=== PATIENT | male | born 1945 | race Caucasian/White ===

== ENCOUNTER 2018-08-03 11:45 | Inpatient (IN) | payer MEDICARE, BC ==
[~2018-08-03] VITALS: Ht 182.9 cm; Wt 105.5 kg
[2018-08-03] VITALS (11 sets, daily range): BP systolic 105–152; BP diastolic 73–91
[~2018-08-03 11:45] MED LIST: CIALIS; [UNRECOGNIZED DRUG - OTHER]
[2018-08-03] MEDS ORDERED: heparin 25,000 UNIT/250ml bag 250 ML IV SCH (11:57)
[2018-08-03] MEDS ORDERED: heparin 10,000 units/1 ML INJ IV PRN (12:00)
[2018-08-03] MEDS ORDERED: aspirin 81mg tab.chew PO ONE (12:00)
[2018-08-03] MEDS ORDERED: heparin 10,000 units/1 ML INJ IV ONE (12:00)
[2018-08-03] MEDS ORDERED: STEMI BOX ONE (12:00)
[2018-08-03] MEDS: nitroGLYCERIN 0.4mg SUBLingual tab SL PRN ×2 (12:04→12:12)
[2018-08-03 12:09] LABS: BASOPHILS % (AUTO) 0.2 % (0-1); EOSINOPHILS # (AUTO) 0.2 X10'3 (0-0.9); EOSINOPHILS % (AUTO) 1.9 % (0-6); HEMOGLOBIN 17.1 g/dl (14.0-17.9); LYMPHOCYTES # (AUTO) 2.7 X10'3 (1.1-4.8); MEAN CORPUSCULAR HEMOGLOBIN 29.9 PG (27.0-31.0); MEAN CORPUSCULAR HGB CONC 33.6 g/dL (33.0-36.5); MEAN CORPUSCULAR VOLUME 88.9 FL (78-98); MONOCYTES # (AUTO) 0.7 X10'3 (0-0.9); MONOCYTES % (AUTO) 5.7 % (2-12); NEUTROPHILS # (AUTO) 8.7 X10'3 (1.8-7.7); NEUTROPHILS % (AUTO) 70.2 % (42-75); PLATELET COUNT 245 X10'3 (140-440); RED BLOOD COUNT 5.73 X10'6 (4.70-6.10); RED CELL DISTRIBUTION WIDTH 12.5 % (11.5-14.5); WHITE BLOOD COUNT 12.4 X10'3 (4.5-11.0)
--- NOTE | 2018-08-03 12:14 | NUR ---
CALLED DR. MESA TO NOTIFY HIM OF STEMI- HE SAID "OKAY". Addendum: 08/03/18 at 1216 by RANDOLPH SPOKE WITH DR. MESA @ [phone]
[2018-08-03] MEDS ORDERED: FLUT1DIS4 INH (12:18)
[2018-08-03] MEDS ORDERED: ESOM40CA30 PO ×2 (12:18→16:44)
[2018-08-03] MEDS ORDERED: TADA10TA PO (12:20)
--- NOTE | 2018-08-03 12:20 | NUR ---
DELAYED ENTRY- PER PHOTOGRAPHIC REPRODUCTION TECHNICIAN GENERAL PRACTICE TEAM IS ON THEIR WAY BUT DUE TO WEATHER, ETA IS UNKNOWN.
[2018-08-03 12:25] LABS: ALANINE AMINOTRANSFERASE 34 U/L (12-78); ALBUMIN 4.2 G/DL (3.4-5.0); ALBUMIN/GLOBULIN RATIO 1.1 (1.1-1.5); ALKALINE PHOSPHATASE 88 IU/L (46-116); ANION GAP 11 (8-16); ASPARTATE AMINO TRANSFERASE 23 U/L (10-37); BILIRUBIN,TOTAL 0.6 MG/DL (0.1-1.0); BLOOD UREA NITROGEN 16 MG/DL (7-18); BUN/CREATININE RATIO 12.8 (5.4-32.0); CALCIUM 9.3 MG/DL (8.5-10.1); CHLORIDE 100 MMOL/L (99-107); CREATININE 1.25 MG/DL (0.60-1.10); GLUCOSE 122 MG/DL (70-104); POTASSIUM 4.2 MMOL/L (3.5-5.1); SODIUM 138 MMOL/L (135-145); TOTAL CARBON DIOXIDE 27.5 MMOL/L (24-32); TOTAL PROTEIN 7.9 G/DL (6.4-8.2); eGFR 57 ML/MIN
[2018-08-03 12:28] LABS: PARTIAL THROMBOPLASTIN TIME 27 SECONDS (22-32); PROTHROMBIN TIME 10.2 SECONDS (9.0-12.0)
[2018-08-03 12:32] LABS: MAGNESIUM 1.8 MG/DL (1.5-2.4)
[2018-08-03] MEDS ORDERED: midazolam 2 mg/2 ml injection ONE (12:41)
[2018-08-03] MEDS ORDERED: LIDOcaine 1% (10mg/ml)w/preservative injection 20ml MDV ONE (12:42)
[2018-08-03] MEDS ORDERED: heparin 1,000unit/ml 10ml vial 10 ML ONE (12:42)
[2018-08-03] MEDS ORDERED: iohexol 350 MG/1 ML 200ml bottle ONE (12:42)
[2018-08-03] MEDS ORDERED: fentaNYL/PF 50MCG/1 ML 2ML syringe ONE (12:42)
--- NOTE | 2018-08-03 12:59 | NUR ---
paz from cath team is taking pt to senior label specialist
[2018-08-03] MEDS ORDERED: atropine 0.1mg/ml 10ml syringe ONE (13:14)
[2018-08-03] MEDS ORDERED: tirofiban 5mg in NS 100mL 100 ML IV ONE (13:20)
[2018-08-03] MEDS ORDERED: ticagrelor 90mg tablet ONE (13:28)
[2018-08-03] MEDS ORDERED: ondansetron/PF 4mg/2ml inj IV PRN (14:25)
[2018-08-03] MEDS ORDERED: HYDROcodone/acetaminophen 5mg/325mg tablet PO PRN (14:25)
[2018-08-03] MEDS ORDERED: proCHLORperazine 10 MG/2 ml inj IV PRN (14:25)
[2018-08-03] MEDS ORDERED: HYDROcodone/acetaminophen 10/325mg tab PO PRN (14:25)
[2018-08-03] MEDS ORDERED: ATOR20TA66 PO (20:24)
[2018-08-03] MEDS ORDERED: acetaminophen 325mg tablet PO PRN (20:40)
[2018-08-03] MEDS: ticagrelor 90mg tablet PO SCH (20:47)
[2018-08-03] MEDS: OXAZEpam 15mg capsule PO PRN (21:30)
[2018-08-04 03:00] VITALS: BP 131/68
[2018-08-04 05:18] LABS: BASOPHILS % (AUTO) 0.2 % (0-1); EOSINOPHILS # (AUTO) 0.3 X10'3 (0-0.9); HEMATOCRIT 46.8 % (42.0-52.0); HEMOGLOBIN 15.9 g/dl (14.0-17.9); LYMPHOCYTES # (AUTO) 2.3 X10'3 (1.1-4.8); MEAN CORPUSCULAR HEMOGLOBIN 29.9 PG (27.0-31.0); MEAN CORPUSCULAR HGB CONC 33.9 g/dL (33.0-36.5); MEAN PLATELET VOLUME 8.1 FL (7.4-10.4); MONOCYTES # (AUTO) 0.8 X10'3 (0-0.9); MONOCYTES % (AUTO) 6.5 % (2-12); NEUTROPHILS # (AUTO) 9.3 X10'3 (1.8-7.7); NEUTROPHILS % (AUTO) 73.3 % (42-75); PLATELET COUNT 214 X10'3 (140-440); RED BLOOD COUNT 5.32 X10'6 (4.70-6.10); RED CELL DISTRIBUTION WIDTH 12.8 % (11.5-14.5); WHITE BLOOD COUNT 12.6 X10'3 (4.5-11.0)
[2018-08-04 06:00] VITALS: BP 146/88
[2018-08-04] MEDS: aspirin 81mg tablet.DR PO SCH (08:00)
[2018-08-04] MEDS: atorvastatin 20mg tablet PO SCH (08:00)
[2018-08-04] MEDS: ticagrelor 90mg tablet PO SCH ×2 (08:00→20:15)
[2018-08-04 08:45] LABS: CHOL/HDL RATIO 2.8 (0.00-4.99); CHOLESTEROL 133 MG/DL (0-200); HDL CHOLESTEROL 48 MG/DL (35-60); LDL CHOLESTEROL 76 MG/DL (50-100); TRIGLYCERIDES 106 MG/DL (20-135)
[2018-08-04] MEDS: pantoprazole 40mg Tablet.DR PO SCH (08:51)
[2018-08-04] MEDS: metoprolol tartrate 12.5mg (1/2 tablet) PO SCH ×2 (11:07→20:15)
[2018-08-04 11:30] VITALS: BP 167/87
[2018-08-04 15:15] VITALS: BP 182/110
--- NOTE | 2018-08-04 17:25 | NUR ---
patient was complaining of intermittent chest pain, EKG done, did not show changes just recent infarct which was known. VSS
[2018-08-04 19:00] VITALS: BP 163/88
[2018-08-04] MEDS: OXAZEpam 15mg capsule PO PRN (20:15)
[2018-08-04 23:00] VITALS: BP 146/96
[2018-08-05 03:00] VITALS: BP 132/91
[2018-08-05 05:16] LABS: BASOPHILS # (AUTO) 0.1 X10'3 (0-0.2); BASOPHILS % (AUTO) 0.4 % (0-1); EOSINOPHILS # (AUTO) 0.2 X10'3 (0-0.9); EOSINOPHILS % (AUTO) 1.6 % (0-6); HEMATOCRIT 51.1 % (42.0-52.0); HEMOGLOBIN 16.8 g/dl (14.0-17.9); LYMPHOCYTES # (AUTO) 2.2 X10'3 (1.1-4.8); LYMPHOCYTES % (AUTO) 17.4 % (21-51); MEAN CORPUSCULAR HEMOGLOBIN 29.4 PG (27.0-31.0); MEAN CORPUSCULAR HGB CONC 32.9 g/dL (33.0-36.5); MEAN CORPUSCULAR VOLUME 89.4 FL (78-98); MEAN PLATELET VOLUME 8.6 FL (7.4-10.4); MONOCYTES % (AUTO) 8.2 % (2-12); NEUTROPHILS # (AUTO) 9.1 X10'3 (1.8-7.7); NEUTROPHILS % (AUTO) 72.4 % (42-75); PLATELET COUNT 209 X10'3 (140-440); RED BLOOD COUNT 5.72 X10'6 (4.70-6.10); RED CELL DISTRIBUTION WIDTH 12.4 % (11.5-14.5); WHITE BLOOD COUNT 12.6 X10'3 (4.5-11.0)
[2018-08-05 05:23] LABS: ALBUMIN 3.6 G/DL (3.4-5.0); ANION GAP 11 (8-16); BLOOD UREA NITROGEN 20 MG/DL (7-18); CHLORIDE 103 MMOL/L (99-107); CREATININE 1.11 MG/DL (0.60-1.10); GLUCOSE 93 MG/DL (70-104); POTASSIUM 3.9 MMOL/L (3.5-5.1); SODIUM 139 MMOL/L (135-145); eGFR 65 ML/MIN
--- NOTE | 2018-08-05 06:14 | NUR ---
Notified Cardiology NURSE ANESTHESIA PROGRAM DIRECTOR Javy re: intermittent episodes of HR<50 NOC 08/04, and questionable brief episode of a-fib. Patient is on metoprolol following heart cath. Patient is in sinus rhythm currently and has remained asymptomatic throughout the shift.
--- NOTE | 2018-08-05 06:30 | NUR ---
Patient in room PCU 3025. I have received report from Arcelia BRUNSON and had the opportunity to ask questions and assume patient care.
--- NOTE | 2018-08-05 06:41 | NUR ---
Rounded on patient recently, c/o chest pain, informed telephone surveyor and watched rhythm convert to a-flutter. Placed order for EKG per protocol at this time.
[2018-08-05 07:00] VITALS: BP 136/93
[2018-08-05] MEDS ORDERED: pantoprazole 40mg Tablet.DR PO SCH (07:30)
[2018-08-05] MEDS: atorvastatin 20mg tablet PO SCH (07:52)
[2018-08-05] MEDS: aspirin 81mg tablet.DR PO SCH (07:52)
[2018-08-05] MEDS: pantoprazole 40mg Tablet.DR PO SCH (07:53)
[2018-08-05] MEDS: metoprolol tartrate 12.5mg (1/2 tablet) PO SCH (07:54)
[2018-08-05] MEDS: ticagrelor 90mg tablet PO SCH (07:56)
[2018-08-05] MEDS ORDERED: non-formulary drug (Fluticasone/Salmeterol (Advair 250-50 Diskus) 1 PUFFS) INH SCH (08:00)
[2018-08-05] MEDS ORDERED: BUDESONIDE 0.25 MG/2 ML AMPUL.NEB IH SCH (08:08)
[2018-08-05] MEDS ORDERED: ATOR20TA PO (08:53)
[2018-08-05] MEDS ORDERED: APIX5TAB3 PO (08:53)
[2018-08-05] MEDS ORDERED: METO25TA6 PO (08:53)
[2018-08-05] MEDS ORDERED: NITR0.4T51 SL (08:54)
[2018-08-05] MEDS ORDERED: TICA90TA PO (09:05)
--- NOTE | 2018-08-05 10:49 | NUR ---
Paged Silvana Palafox RN to clarify discharge medications.
[2018-08-05 11:00] VITALS: BP 132/87
[2018-08-05] MEDS ORDERED: albuterol 2.5 MG/3 ML nebule NEB SCH (11:00)
--- NOTE | 2018-08-05 12:00 | NUR ---
Patient discharged home at this time without event, escorted out via W/C out to meet his in private vehicle per [facility] staff. IV dc'd, cathlon intact; tele dc'd. Discharge instructions discussed, answered questions. Called meds in [facility]. Patient eager to go home.
[2018-08-05] MEDS ORDERED: metoprolol tartrate 25mg tablet PO SCH (20:00)
[2018-08-06] MEDS ORDERED: atorvastatin 20mg tablet PO SCH (08:00)
== END 2018-08-05 12:04 | disposition home or self-care (01) | DRG 247 ==
LOC: ER 11:45 → PCU 3S 14:00
PROVIDERS: ADMIT Internal Medicine Interventional Cardiology; ATTEND Internal Medicine Interventional Cardiology
PROC: 4A023N7 Measurement of Cardiac Sampling and Pressure, Left Heart, Percutaneous Approach (ICD-10-PCS; principal; 2018-08-03)
PROC: 027034Z Dilation of Coronary Artery, One Artery with Drug-eluting Intraluminal Device, Percutaneous Approach (ICD-10-PCS; 2018-08-03)
PROC: B2111ZZ Fluoroscopy of Multiple Coronary Arteries using Low Osmolar Contrast (ICD-10-PCS; 2018-08-03)
PROC: B2151ZZ Fluoroscopy of Left Heart using Low Osmolar Contrast (ICD-10-PCS; 2018-08-03)
DX: I21.19 ST elevation (STEMI) myocardial infarction involving other coronary artery of inferior wall (principal); J44.9 Chronic obstructive pulmonary disease, unspecified; I10 Essential (primary) hypertension; E78.5 Hyperlipidemia, unspecified; E78.00 Pure hypercholesterolemia, unspecified; I48.0 Paroxysmal atrial fibrillation; Z90.49 Acquired absence of other specified parts of digestive tract; Z88.0 Allergy status to penicillin; Z88.2 Allergy status to sulfonamides; Z79.01 Long term (current) use of anticoagulants; Z79.51 Long term (current) use of inhaled steroids; Z79.899 Other long term (current) drug therapy; Z87.891 Personal history of nicotine dependence
CPT/HCPCS: 93306; 93458; 96365; 96376; 99291; C9606; 36415; 71045; 80048; 80053; 80061; 83735; 83880; 84484; 85025; 85610; 85730; 87070; 93005; 99152; 99153; A4620; A6257; C1725; C1760; C1769; C1874; G0378; J0461; J1644; J2001; J2250; J3010; J3246; Q9967

== ENCOUNTER 2019-01-07 10:33 | Emergency (ER) | payer MEDICARE, BC ==
[~2019-01-07] VITALS: Ht 182.9 cm; Wt 109.0 kg
[~2019-01-07 10:33] MED LIST changes: +APIX5TAB3 PO; +ATOR20TA PO; -CIALIS; +ESOM40CA49 PO; +FLUT1DIS4 INH; +METO25TA6 PO; +NITR0.4T51 SL; +TICA90TA PO; -[UNRECOGNIZED DRUG - OTHER]
[2019-01-07 11:39] LABS: PARTIAL THROMBOPLASTIN TIME 26 SECONDS (22-32)
[2019-01-07 11:40] LABS: ALANINE AMINOTRANSFERASE 35 U/L (12-78); ALBUMIN 3.1 G/DL (3.4-5.0); ALKALINE PHOSPHATASE 69 IU/L (46-116); ANION GAP 5 (8-16); ASPARTATE AMINO TRANSFERASE 29 U/L (10-37); BASOPHILS % (AUTO) 0.3 % (0-1); BILIRUBIN,TOTAL 0.5 MG/DL (0.1-1.0); BLOOD UREA NITROGEN 14 MG/DL (7-18); BUN/CREATININE RATIO 12.6 (5.4-32.0); CALCIUM 7.7 MG/DL (8.5-10.1); CHLORIDE 107 MMOL/L (99-107); CREATININE 1.11 MG/DL (0.60-1.10); EOSINOPHILS # (AUTO) 0.1 X10'3 (0-0.9); EOSINOPHILS % (AUTO) 1.6 % (0-6); GLUCOSE 124 MG/DL (70-104); HEMATOCRIT 43.2 % (42.0-52.0); HEMOGLOBIN 14.4 g/dl (14.0-17.9); LYMPHOCYTES # (AUTO) 1.3 X10'3 (1.1-4.8); LYMPHOCYTES % (AUTO) 15.2 % (21-51); MEAN CORPUSCULAR HEMOGLOBIN 29.9 PG (27.0-31.0); MEAN CORPUSCULAR HGB CONC 33.4 g/dL (33.0-36.5); MEAN CORPUSCULAR VOLUME 89.6 FL (78-98); MEAN PLATELET VOLUME 8.1 FL (7.4-10.4); MONOCYTES # (AUTO) 0.6 X10'3 (0-0.9); MONOCYTES % (AUTO) 7.2 % (2-12); NEUTROPHILS # (AUTO) 6.6 X10'3 (1.8-7.7); NEUTROPHILS % (AUTO) 75.7 % (42-75); PLATELET COUNT 172 X10'3 (140-440); POTASSIUM 4.3 MMOL/L (3.5-5.1); RED BLOOD COUNT 4.82 X10'6 (4.70-6.10); RED CELL DISTRIBUTION WIDTH 13.5 % (11.5-14.5); SODIUM 140 MMOL/L (135-145); TOTAL CARBON DIOXIDE 28.5 MMOL/L (24-32); TOTAL PROTEIN 6.1 G/DL (6.4-8.2); WHITE BLOOD COUNT 8.7 X10'3 (4.5-11.0); eGFR 65 ML/MIN
[2019-01-07 15:07] VITALS: BP 132/79
== END 2019-01-07 15:09 | disposition home or self-care (01) ==
LOC: ER 10:33
DX: R07.89 Other chest pain (principal); I25.10 Atherosclerotic heart disease of native coronary artery without angina pectoris; E78.00 Pure hypercholesterolemia, unspecified; Z88.0 Allergy status to penicillin; Z88.2 Allergy status to sulfonamides; Z79.899 Other long term (current) drug therapy
CPT/HCPCS: 36415; 71045; 80053; 84484; 85025; 85610; 85730; 93005; 99284

== ENCOUNTER 2022-10-02 07:48 | Outpatient (CLI) | payer MEDICARE, BC ==
[~2022-10-02 07:48] MED LIST changes: +LOP25T PO; -METO25TA6 PO
[2022-10-02 08:13] LABS: BASOPHILS % (AUTO) 0.4 % (0-1); EOSINOPHILS # (AUTO) 0.2 X10'3 (0-0.9); EOSINOPHILS % (AUTO) 2.7 % (0-6); HEMATOCRIT 43.7 % (42.0-52.0); HEMOGLOBIN 14.6 g/dl (14.0-17.9); LYMPHOCYTES # (AUTO) 1.9 X10'3 (1.1-4.8); LYMPHOCYTES % (AUTO) 22.7 % (21-51); MEAN CORPUSCULAR HEMOGLOBIN 29.4 PG (27.0-31.0); MEAN CORPUSCULAR HGB CONC 33.4 g/dL (33.0-36.5); MEAN CORPUSCULAR VOLUME 88.1 FL (78-98); MEAN PLATELET VOLUME 7.7 FL (7.4-10.4); MONOCYTES # (AUTO) 0.7 X10'3 (0-0.9); MONOCYTES % (AUTO) 8.4 % (2-12); NEUTROPHILS # (AUTO) 5.6 X10'3 (1.8-7.7); NEUTROPHILS % (AUTO) 65.8 % (42-75); PLATELET COUNT 199 X10'3 (140-440); RED BLOOD COUNT 4.97 X10'6 (4.70-6.10); RED CELL DISTRIBUTION WIDTH 14.3 % (11.5-14.5); WHITE BLOOD COUNT 8.5 X10'3 (4.5-11.0)
[2022-10-02 08:23] LABS: ALBUMIN 3.8 G/DL (3.4-5.0); ANION GAP 7 (8-16); BLOOD UREA NITROGEN 13 MG/DL (7-18); BUN/CREATININE RATIO 14.8 (10.0-20.0); CALCIUM 8.8 MG/DL (8.5-10.1); CHLORIDE 105 MMOL/L (99-107); CREATININE 0.88 MG/DL (0.60-1.10); GLUCOSE 92 MG/DL (70-104); POTASSIUM 4.2 MMOL/L (3.5-5.1); SODIUM 141 MMOL/L (135-145); TOTAL CARBON DIOXIDE 28.8 MMOL/L (24-32); eGFR 84 ML/MIN
[2022-10-02 08:24] LABS: APTT 30 SECONDS (22-32)
== END 2022-10-02 23:59 | disposition home or self-care (01) ==
LOC: LAB 07:48 → EDSTATUS 10-06 14:00
PROVIDERS: ATTEND Student in an Organized Health Care Education/Training Program
DX: Z01.812 Encounter for preprocedural laboratory examination (principal); I48.0 Paroxysmal atrial fibrillation; E78.5 Hyperlipidemia, unspecified; E66.3 Overweight; I25.2 Old myocardial infarction; I25.10 Atherosclerotic heart disease of native coronary artery without angina pectoris; G47.30 Sleep apnea, unspecified; I65.23 Occlusion and stenosis of bilateral carotid arteries; I48.92 Unspecified atrial flutter; Z95.5 Presence of coronary angioplasty implant and graft; F17.221 Nicotine dependence, chewing tobacco, in remission; Z88.0 Allergy status to penicillin; Z88.2 Allergy status to sulfonamides; Z82.49 Family history of ischemic heart disease and other diseases of the circulatory system
CPT/HCPCS: 36415; 80048; 85025; 85610; 85730; A4620; J7030

== ENCOUNTER 2025-01-23 11:04 | Day surgery (SDC) | payer MEDICARE, BC ==
[~2025-01-23] VITALS: Ht 182.9 cm; Wt 98.1 kg
[~2025-01-23 11:04] MED LIST changes: +AMLO10TA PO; -ATOR20TA PO; +ATOR20TA66 PO; +ESOM40CA2 PO; -ESOM40CA49 PO; -FLUT1DIS4 INH; -LOP25T PO; +LOSA100T58 PO; +SILD100T PO; -TICA90TA PO
[2025-01-23 11:31] VITALS: BP 139/81; PULSE 63; RESP 14; TEMP 97.8; O2SAT 98
[2025-01-23] MEDS ORDERED: PANT40TA54 PO (11:37)
[2025-01-23] MEDS ORDERED: MIDAZolam 1mg/ml 10ml vial IV ONE (11:55)
[2025-01-23] MEDS ORDERED: normal saline 1000ml 1,000 ML IV SCH (11:55)
[2025-01-23] MEDS ORDERED: fentaNYL/PF 50MCG/1 ML 2ML syringe IV ONE (11:55)
[2025-01-23] MEDS ORDERED: midazolam 1 mg/ML 2ml injection ONE (12:18)
[2025-01-23] MEDS ORDERED: fentaNYL/PF 50MCG/1 ML 2ML syringe ONE (12:18)
[2025-01-23 12:30] LABS: MEAN PLATELET VOLUME 8.3 FL (7.4-10.4); RED CELL DISTRIBUTION WIDTH 16.6 % (11.5-14.5)
[2025-01-23 12:40] LABS: CREATININE 1.27 MG/DL (0.60-1.10); TOTAL CARBON DIOXIDE 26.5 MMOL/L (24-32); eCRCL 53 ML/MIN; eGFR 55 ML/MIN
[2025-01-23 12:44] LABS: APTT 28 SECONDS (22-32); INR 1.0 INR
[2025-01-23 13:30] VITALS: BP 123/75; PULSE 75; RESP 14; O2SAT 95
[2025-01-23] MEDS ORDERED: CLOP75TA34 PO (13:35)
[2025-01-23] MEDS ORDERED: ASPI-1397 PO (13:35)
[2025-01-23 13:45] VITALS: BP 128/75; PULSE 72; RESP 15; O2SAT 98
[2025-01-23 14:00] VITALS: BP 120/75; PULSE 69; RESP 16; O2SAT 94
[2025-01-23 14:15] VITALS: BP 127/75; PULSE 67; RESP 15; O2SAT 96
[2025-01-23 14:30] VITALS: BP 134/71; PULSE 63; RESP 16; O2SAT 95
--- NOTE | 2025-01-24 06:10 | CARDIOLOGY REPORT ---
APPROVED REPORT EXAM: Focused, limited transesophageal echocardiogram with color flow Doppler. Patient Location: CARDIAC PRESSER MACHINE Blood Pressure: 143 / 70 mmHg Heart Rate: 92 bpm Rhythm: SINUS Indications POST WATCHMAN FLX VANESSA CLOSURE DEVICE IMPLANTATION FOLLOW UP EVALUATE DEVICE FOR THROMBUS, POSITION, AND SEAL 27mm WATCHMAN FLX VANESSA CLOSURE DEVICE KARAN PROBE PASSED BY: Steffi Friedman MD Geotechnical Laboratory Technician: Skye Friedman MD Previous echo: 12/07/24 [facility] RL/SS EF: 60-65%; nlLV; nlRV; noPE; noRESIDUAL LEFT VENTRICLE Normal LV size and wall thickness. Overall systolic function is normal. LVEF is 60-65%. RIGHT VENTRICLE RV is normal size and function. ATRIA LA is severely dilated. Intact interatrial septum without shunt detected s/p transseptal puncture. Le ft upper pulmonary vein identified. Successfully occluded left atrial appendage with well visualized Watchman device well positioned without thrombus. No residual flow detected around device in all view s. GREAT VESSELS Ascending aorta is normal in size with mild atherosclerotic debris. PERICARDIUM Normal pericardium. No effusion. CONCLUSION Normal LV size and wall thickness. Overall systolic function is normal. LVEF is 60-65%. RV is normal size and function. LA is severely dilated. Intact interatrial septum without shunt detected s/p trans septal puncture. Left upper pulmonary vein identified. Successfully occluded left atrial appendage wi th well visualized Watchman device well positioned without thrombus. No residual flow detected around device in all views. Ascending aorta is normal in size with mild atherosclerotic debris. Normal daphne cardium. No effusion. Conclusion Normal LV size and wall thickness. Overall systolic function is normal. LVEF is 60-65%. RV is normal size and function. LA is severely dilated. Intact interatrial septum without shunt detected s/p transseptal puncture. L eft upper pulmonary vein identified. Successfully occluded left atrial appendage with well visualize d Watchman device well positioned without thrombus. No residual flow detected around device in all v iews. Ascending aorta is normal in size with mild atherosclerotic debris. Normal pericardium. No effusion.
== END 2025-01-23 14:25 | disposition home or self-care (01) ==
LOC: SSTAY O 11:04
PROVIDERS: ATTEND Student in an Organized Health Care Education/Training Program
DX: I48.91 Unspecified atrial fibrillation (principal); I70.0 Atherosclerosis of aorta; I25.10 Atherosclerotic heart disease of native coronary artery without angina pectoris; E78.5 Hyperlipidemia, unspecified; K21.9 Gastro-esophageal reflux disease without esophagitis; J44.9 Chronic obstructive pulmonary disease, unspecified; Z95.818 Presence of other cardiac implants and grafts; Z88.0 Allergy status to penicillin; Z88.2 Allergy status to sulfonamides
CPT/HCPCS: 36415; 80048; 85025; 85610; 85730; 93312; 93325; J2250; J3010; J7030; 99152